=== PATIENT | male | born 1945 | race Caucasian/White ===

== ENCOUNTER 2019-07-29 18:01 | Emergency (ER) | payer BC ==
[~2019-07-29] VITALS: Ht 175.3 cm; Wt 93.9 kg
--- NOTE | 2019-07-29 18:06 | NUR ---
VERNON, FROM HOME, C/O DIZZINESS, ASSISTED HIMSELF TO THE GROUND, -TRAUMA. PATIENT A/OX4, BREATHING EVEN AND UNLABORED, CHANGED INTO GOWN, ATTACHED TO THE PLANT AND EQUIPMENT WORKER. NO DISTRESS NOTED.
[2019-07-29 18:17] LABS: BASOPHILS % (AUTO) 0.2 % (0.0-2.0); HEMATOCRIT 43 % (39-51); HEMOGLOBIN 14.1 g/dL (13.5-17.5); LYMPHOCYTES # (AUTO) 0.9 /CMM (0.8-4.8); LYMPHOCYTES % (AUTO) 7.5 % (20.0-44.0); MEAN CORPUSCULAR HGB CONC 33 g/dl (31.0-36.0); MEAN CORPUSCULAR VOLUME 83 fL (80-96); MONOCYTES # (AUTO) 0.6 /CMM (0.1-1.30); MONOCYTES % (AUTO) 4.8 % (2.0-12.0); NEUTROPHILS # (AUTO) 11.1 /CMM (1.8-8.9); NEUTROPHILS % (AUTO) 87.5 % (43.0-81.0); PLATELET COUNT (AUTO) 300 /CMM (150-450); RED BLOOD CELL COUNT(AUTO) 5.19 MIL/uL (4.5-6.0); WHITE BLOOD COUNT (AUTO) 12.7 K/uL (4.3-11.0)
--- NOTE | 2019-07-29 18:20 | NUR ---
PATIENT ATTEMPTING TO URINATE ON URINAL. REFUSED STRAIGHT CATHETER.
--- NOTE | 2019-07-29 18:25 | NUR ---
PATIENT TAKEN TO CT.
[2019-07-29 18:34] LABS: CALCIUM, SERUM 9.4 mg/dL (8.5-10.1); CARBON DIOXIDE 26 mmol/L (21-32); CHLORIDE 105 mmol/L (98-107); CREATININE 1.4 mg/dL (0.6-1.3); GLUCOSE 170 mg/dL (74-106); POTASSIUM 3.9 mmol/L (3.5-5.1); SODIUM SERUM 139 mmol/L (136-145); UREA NITROGEN, BLOOD 17 mg/dL (7-18)
[2019-07-29 18:40] LABS: ALANINE AMINOTRANSFERASE 27 U/L (12-78); ALBUMIN 3.9 g/dL (3.4-5.0); ALKALINE PHOSPHATASE 106 U/L (46-116); ASPARTATE AMINOTRANSFERASE 18 U/L (15-37); BILIRUBIN,DIRECT 0.2 mg/dL (0.0-0.2); BILIRUBIN,TOTAL 0.8 mg/dL (0.2-1.0); TOTAL PROTEIN, SERUM 7.2 g/dL (6.4-8.2)
--- NOTE | 2019-07-29 19:05 | NUR ---
PATIENT STILL ATTEMPTING TO URINATE ON A URINAL.
--- NOTE | 2019-07-29 19:22 | NUR ---
PAGED DR. MENDEZ ANSWERING SERVICE.
--- NOTE | 2019-07-29 19:30 | NUR ---
ENDORSED TO LINN VERMA FOR MELITA.
--- NOTE | 2019-07-29 19:53 | NUR ---
AND DAUGHTER CALLED REGARDING STATUS OF PT. LEFT CONTACT INFO. ASK FOR SHIRA OR CHIDI .
--- NOTE | 2019-07-29 20:34 | NUR ---
SPOKE TO KHRIS WRINGER OPERATOR FROM [facility]
--- NOTE | 2019-07-29 21:15 | NUR ---
PT ACCEPTED TO [facility] BY DR OLIVO. AWAITING TRANSFER INFORMATION
--- NOTE | 2019-07-29 22:30 | NUR ---
PT WILL BE TRANSFERRED TO [facility]. RM: [id number] # FOR REPORT: ACCEPTING MD: DR OLIVO
--- NOTE | 2019-07-29 22:42 | NUR ---
REPORT GIVE TO ISIDORO. GOING TO RM [id number]
[2019-07-29 23:30] VITALS: BP 132/71
--- NOTE | 2019-07-29 23:30 | NUR ---
[place] [facility] [place]
--- NOTE | 2019-07-29 23:46 | NUR ---
PT WAS PICKED UP BY [facility] AND TRANSFERRED TO [facility] UNDER ACLS IN STABLE CONDITION. ALL BELONGINGS PICKED UP BY THE PT/ ACTUARIAL MANAGER
== END 2019-07-29 23:49 | disposition short-term general hospital (02) ==
LOC: ER 18:05
DX: R55 Syncope and collapse (principal); I10 Essential (primary) hypertension; E78.5 Hyperlipidemia, unspecified; Z86.73 Personal history of transient ischemic attack (TIA), and cerebral infarction without residual deficits; K21.9 Gastro-esophageal reflux disease without esophagitis; Z60.2 Problems related to living alone
CPT/HCPCS: 36415; 70450-TC; 71045-TC; 80048-TC; 80076-TC; 84484-TC; 85025-TC; 85730-TC; 87081-TC